=== PATIENT | male | born 1985 | race African-American/Black ===

== ENCOUNTER 2016-09-03 12:58 | Emergency (ER) | payer BC ==
[~2016-09-03] VITALS: Ht 185.4 cm; Wt 89.9 kg
[2016-09-03 13:01] VITALS: Ht 185.4 cm; Wt 89.9 kg
[2016-09-03] MEDS ORDERED: KETOROLAC 60 MG INJ IM STA (13:26)
--- NOTE | 2016-09-03 14:38 | RADRPT ---
PROCEDURE: Left XR Hand. CLINICAL INDICATION: Injury to left fifth digit. TECHNIQUE: AP, oblique and lateral views of the left hand were obtained. COMPARISON: No. FINDINGS: The intermediate left fifth phalanx is dislocated. The other bony elements are anatomically aligned . No fracture is identified. IMPRESSION: 1. Dislocation of the intermediate left fifth phalanx. RPTAT:AAJJ Physician Tomasa Date Time Electronically viewed and signed by Len Beck Physician on 09/03/2016 14:37 KRYSTAL/
[2016-09-03] MEDS ORDERED: LIDOCAINE 1% (MDV) 20 ML INJ SC ONE (15:00)
[2016-09-03] MEDS ORDERED: HYDROCODONE/APAP (10/325) TAB PO ONE (15:00)
--- NOTE | 2016-09-03 16:54 | RADRPT ---
PROCEDURE: XR Finger. CLINICAL INDICATION: Reduction TECHNIQUE: Two views of the left fifth finger are available for review. COMPARISON: None available FINDINGS: There has been interval successful reduction of the fifth PIP joint. No displaced osseous for fragm ents are identified. Mild soft tissue swelling. IMPRESSION: 1. Successful reduction of the fifth PIP joint without visualized fracture fragments. RPTAT: EE .Duglas Lutz MD, MD Date Time Electronically viewed and signed by .Duglas Lutz MD, on 09/03/2016 16:54 .d/
[2016-09-03] MEDS ORDERED: IBUP800T25 PO (17:13)
[2016-09-03] MEDS ORDERED: CEPH-443 PO (17:13)
--- NOTE | 2016-09-03 17:55 | ERD ---
ER Documentation Chief Complaint Date/Time DATE: 09/03/16 TIME: 17:53 Chief Complaint LEFT PINKY INJURY HPI 31-year-old male patient who is right-handed presents to the ED complaining of a left pinky injury while playing cricket. States that the ball may have crushed his left pinky finger while he was trying to catch it. Reports that he is on the team. Denies any loss of sensation, loss of range of motion, weakness , numbness or tingling. Denies any head or neck injuries. Reports that he is up to date with his tetanus vaccine. ROS All systems reviewed and are negative except as per history of present illness. Medications Home Meds Active Scripts Ibuprofen* (Motrin*) 800 Mg Tab, 800 MG PO Q6, #30 TAB take with food Prov:HANNA DUPONT PA-C 09/03/16 Cephalexin* (Keflex*) 500 Mg Capsule, 500 MG PO QID for 7 Days, CAP Prov:HANNA DUPONT PA-C 09/03/16 Allergies Allergies: Coded Allergies: No Known Allergy (Unverified , 09/03/16) PMhx/Soc Medical and Surgical Hx: pt denies Medical Hx, pt denies Surgical Hx History of Surgery: No Anesthesia Reaction: No Hx Neurological Disorder: No Hx Respiratory Disorders: No Hx Cardiac Disorders: No Hx Psychiatric Problems: No Hx Miscellaneous Medical Probl: No Hx Alcohol Use: No Hx Substance Use: No Hx Tobacco Use: No Smoking Status: Never smoker Physical Exam Vitals Vital Signs Date Time Temp Pulse Resp B/P Pulse Ox O2 Delivery O2 Flow Rate FiO2 09/03/16 13:01 98.1 83 18 129/83 99 Physical Exam Const: Well appearing. Nontoxic Head: Atraumatic Eyes: Normal Conjunctiva ENT: Normal External Ears, Nose and Mouth. Neck: Full range of motion..~ No meningismus. Resp: Clear to auscultation bilaterally Cardio: Regular rate and rhythm, no murmurs Abd: Soft, non tender, non distended. Normal bowel sounds Skin: No petechiae or rashes Back: No midline or flank tenderness Ext: No cyanosis. Left pinky finger slightly deviated laterally secondary to crush injury. Two 0.5 cm linear lacerations noted of the PIP of left pinky finger. Full range of motion noted of PIP, MCP, DIP joints. Slightly edematous. No warmth to touch. Neur: Awake and alert Psych: Normal Mood and Affect Results 24 hrs Current Medications Medications (Trade) Dose Ordered Sig/Vandana Route PRN Reason Start Time Stop Time Status Last Admin Dose Admin Ketorolac Tromethamine (Toradol) 60 mg ONCE STAT IM 09/03/16 13:26 09/03/16 13:29 DC 09/03/16 13:37 Acetaminophen/ Hydrocodone Bitart ([place] (10/325)) 1 tab ONCE ONCE PO 09/03/16 15:00 09/03/16 15:01 DC 09/03/16 14:57 Lidocaine (Xylocaine 1% (Mdv) 20 ml) 20 ml ONCE ONCE SC 09/03/16 15:00 09/03/16 15:01 DC Procedures/MDM This is a 31 year old male patient who injured his left pinky finger after playing cricket. Patient is afebrile and nontoxic appearing. Patient has normal vital signs. Patient was given [place] and Toradol here in the ED with improvement of pain. Left handy xray was ordered to further evaluate patient. Patient gave consent to perform laceration repair. Laceration Repair by me: Anesthesia: 5 cc 1% lidocaine locally Location: Left pinky finger Tendon/Joint/Nerves: No injury Foreign body: None detected after copious irrigation and exploration Technique: 2 4-0 Ethilon Simple Interrupted Sutures Complexity: No subcutaneous sutures/mucosal repair/ edge excision Post Closure Length: [Two 0.5 linear ] cm PROCEDURE: Left XR Hand. CLINICAL INDICATION: Injury to left fifth digit. TECHNIQUE: AP, oblique and lateral views of the left hand were obtained. COMPARISON: No. FINDINGS: The intermediate left fifth phalanx is dislocated. The other bony elements are anatomically aligned. No fracture is identified. IMPRESSION: 1. Dislocation of the intermediate left fifth phalanx. PROCEDURE: XR Finger. CLINICAL INDICATION: Reduction TECHNIQUE: Two views of the left fifth finger are available for review. COMPARISON: None available FINDINGS: There has been interval successful reduction of the fifth PIP joint. No displaced osseous for fragments are identified. Mild soft tissue swelling. IMPRESSION: 1. Successful reduction of the fifth PIP joint without visualized fracture fragments. Patient is placed in a left pinky finger metal splint. Splint Assessment: Neurovascularly intact pre and post splint placement with good fit. 2 day wound check recommended. 7-10 days return for suture removal by PCP or here in the ED. Patient's extremity symptoms have stabilized while they have been evaluated in the department and are appropriate for outpatient follow up. No evidence of fractures, dislocations, compartment syndrome, neurologic injury , vascular injury, open joint, open fracture, tendon laceration, septic arthritis, osteomyelitis, DVT, foreign body, or other emergent conditions. Discharge medications: Keflex, ibuprofen Follow up with primary care physician in 1-2 days. Instructed patient to return to the ED sooner for any worsening symptoms. Patient's questions were answered. Patient understood and agreed with discharge plan. Patient discharged stable. Departure Diagnosis: Primary Impression: Finger injury Encounter type: initial encounter Laterality: left Qualified Code: S69.92XA - Finger injury, left, initial encounter Condition: Stable Patient Instructions: Dislocated Finger Referrals: [facility] YOU HAVE RECEIVED A MEDICAL SCREENING EXAM AND THE RESULTS INDICATE THAT YOU DO NOT HAVE A CONDITION THAT REQUIRES URGENT TREATMENT IN THE EMERGENCY DEPARTMENT. FURTHER EVALUATION AND TREATMENT OF YOUR CONDITION CAN WAIT UNTIL YOU ARE SEEN IN YOUR DOCTORS OFFICE WITHIN THE NEXT 1-2 DAYS. IT IS YOUR RESPONSIBILITY TO MAKE AN APPOINTMENT FOR FOLOW-UP CARE. IF YOU HAVE A PRIMARY DOCTOR --you should call your primary doctor and schedule an appointment IF YOU DO NOT HAVE A PRIMARY DOCTOR YOU CAN CALL OUR PHYSICIAN REFERRAL HOTLINE AT IF YOU CAN NOT AFFORD TO SEE A PHYSICIAN YOU CAN CHOSE FROM THE FOLLOWING [facility] [address] [facility]. [facility] [address] [facility] [facility] [address] [facility] [facility] [address] [facility]. [facility] [address] [facility]. [facility]. [address] [facility]. [facility] YOU HAVE RECEIVED A MEDICAL SCREENING EXAM AND THE RESULTS INDICATE THAT YOU DO NOT HAVE A CONDITION THAT REQUIRES URGENT TREATMENT IN THE EMERGENCY DEPARTMENT. FURTHER EVALUATION AND TREATMENT OF YOUR CONDITION CAN WAIT UNTIL YOU ARE SEEN IN YOUR DOCTORS OFFICE WITHIN THE NEXT 1-2 DAYS. IT IS YOUR RESPONSIBILITY TO MAKE AN APPOINTMENT FOR FOLOW-UP CARE. IF YOU HAVE A PRIMARY DOCTOR --you should call your primary doctor and schedule and appointment IF YOU DO NOT HAVE A PRIMARY DOCTOR YOU CAN CALL OUR PHYSICIAN REFERRAL HOTLINE AT . IF YOU CAN NOT AFFORD TO SEE A PHYSICIAN YOU CAN CHOSE FROM THE FOLLOWING [facility] INSTITUTIONS: [facility] [address] [place] [address] [facility] [address] [place] [address] [facility] + [facility] [address] [place] [address] [facility] Additional Instructions: Follow up in 2 days in your clinic for wound check. Follow up with your physician to remove the stitches:For Face wounds 5-7 days.For Elsewhere on the body 7-10 days. HANNA DUPONT PA-C September 03, 2016 17:55 Follow up in 2 days in your clinic for wound check. Follow up with your physician to remove the stitches:For Face wounds 5-7 days.For Elsewhere on the body 7-10 days. HANNA DUPONT PA-C September 03, 2016 17:55
== END 2016-09-03 17:26 | disposition home or self-care (01) ==
LOC: FTE 12:58
DX: S61.217A Laceration without foreign body of left little finger without damage to nail, initial encounter (principal); S62.617A Displaced fracture of proximal phalanx of left little finger, initial encounter for closed fracture; W21.03XA Struck by baseball, initial encounter; Y92.9 Unspecified place or not applicable
CPT/HCPCS: 12001; 26770; 73130; 73140; 96372; J1885; Z7502; Z7610